=== PATIENT | female | born 1950 | race Caucasian/White ===

== ENCOUNTER 2019-05-29 12:58 | Outpatient (CLI) | payer MEDICARE | END 2019-05-29 23:59 | disposition home or self-care (01) | LOC: CFH 12:58 | PROVIDERS: ATTEND Internal Medicine | DX: M85.88 Other specified disorders of bone density and structure, other site (principal); M89.9 Disorder of bone, unspecified; N95.9 Unspecified menopausal and perimenopausal disorder; I35.8 Other nonrheumatic aortic valve disorders; E78.5 Hyperlipidemia, unspecified | CPT/HCPCS: 77080; 93306 ==